=== PATIENT | male | born 1965 | race Caucasian/White ===

== ENCOUNTER 2016-10-14 09:41 | Inpatient (IN) ==
--- NOTE | 2016-10-13 21:55 | Discharge Summary ---
<Talisha Solis - Last Filed: 10/13/16 21:51> Date of Encounter: 10/13/16 - Discharge Diagnosis (1) Glenohumeral arthritis Priority: Primary Status: Acute Qualifiers: Laterality: left Qualified Code(s): M19.012 - Primary osteoarthritis, left shoulder - Discharge Medications Home Medications: OxyCODONE Immed Rel [Roxicodone 5 MG] 5 - 10 mg PO Q6HR PRN #40 tablet 10/13/16 [Rx] Ibuprofen [Motrin] 800 mg PO Q8HR PRN 10/14/16 [History] Lisinopril/Hydrochlorothiazide [Zestoretic 20-12.5 mg Tablet] 1 tab PO DAILY 06/22 [History] Allergies/Adverse Reactions: Allergies No Known Allergies Allergy (Verified 10/14/16 10:37) Primary care physician: Archana Mcguire - Patient Status Disposition: Home, Self-Care Condition: Good - Discharge Instructions Follow Up With: Carol Govea, [employer] [Primary Care Provider] - Additional Instructions: Discharge Instructions: Total Shoulder Please call [facility] ([phone]), your Primary Care Physician, or report to the Emergency Room if you have any of the following symptoms: Nausea, vomiting, fever greater that 101.5, swelling, chest pain, shortness of breath, increased pain/redness/drainage/odor for your incision site, numbness/ tingling, or any other concerning symptoms. ACTIVITY: Always keep your arm in the sling. Do not raise your arm away from your body. Do not use your arm to help with getting in or out of bed. No weight bearing permitted. Only perform those exercises given to you by your therapist. MEDICATIONS: Upon discharge resume your home medications. Take all the medications as prescribed. Take a stool softener if taking narcotic pain medications. Stool softeners are only effective if you drink enough fluids. Drink 6-8 glass of water or fluids a day, unless this is not allowed for another health problem. Despite using stool softeners, if you haven't had a bowel movement in 3 days, please switch to a gentle laxative. Gentle laxatives are sold over the counter. You should have a bowel movement within 24 hours, if not call the office. You will be discharged from the hospital with a prescription for pain medication. You are encouraged to decrease the use of narcotic pain medication as tolerated. Should you require a refill, please call the office. [facility] prescribes narcotic pain medication for only 4-6 weeks after surgery. If you require pain medication beyond this time period, you may be referred to your Primary Care Physician or to the Pain Clinic for further evaluation. Plan ahead for refills on pain medication as many narcotics either need to be picked up at the office or mailed. It is best to call 48-72 hours in advance of needing a prescription refill so you don't run out of medication. To help control the post-operative pain, you may take NSAIDs (Aleve,Advil, Motrin, ibuprofen, naprosyn) or Tylenol as prescribed on the bottle in addition to the pain medication. ANTICOAGULATION (blood thinners): Continue your Aspirin, Lovenox or Coumadin as prescribed to help prevent a blood clot in the leg or in the lungs. As long as your incision remains dry and you tolerate the NSAIDs (Aleve, Advil, Motrin, ibuprofen, naprosyn), it is OK to use the NSAIDS while you are taking your anticoagulation medication. Should your incision start to drain, stop the NSAID and contact our office. Common symptoms of blood clot in the legs include: localized pain, swelling, calf tenderness, redness or discoloration of the skin. Blood clot in the lung symptoms include: shortness of breath, rapid pulse, sweating, and chest pain that worsens with deep breathing, coughing up blood, lightheadedness, and feelings of anxiety. If you experience any of these symptoms notify your physician immediately, go to the emergency room, or if having trouble breathing , call 911. WOUND CARE: Leave the dressing on for 7 days. You may change the dressing if it becomes saturated greater than 50%. You can shower but not a tub bath or submerge your incision in water. Wash your hands with antibacterial soap, rinse and dry prior to any wound care. If you have rehan the visiting nurse or rehab facility can remove the stapes 10-14 days after surgery and place steri -strips across the wound. Leave the steri-strips in place until they fall off on their won. You may let water from the shower run on top of the steri- stirips. If you do not have a visiting nurse or rehab facility, you will need to return to the office at 10-14 days for the rehan to be removed. FOLLOW-UP: Please follow up with your surgeon in the orthopedic clinic, as scheduled - Hospital Course Hospital course: Mr. Mondragon is a 51 year old male - Time Spent with Patient Total time spent providing and/or coordinating discharge services: <Omega Garcia - Last Filed: 10/18/16 13:54> Date of Encounter: 10/18/16 Time of Encounter: 13:54 - Discharge Diagnosis (1) Obesity, morbid, BMI 40.0-49.9 Priority: Secondary Status: Chronic (2) Glenohumeral arthritis Priority: Primary Status: Acute Qualifiers: Laterality: left Qualified Code(s): M19.012 - Primary osteoarthritis, left shoulder (3) HTN (hypertension) Priority: Secondary Status: Chronic Qualifiers: Hypertension type: essential hypertension Qualified Code(s): I10 - Essential (primary) hypertension Primary care physician: Archana Mcguire - Patient Status Functional capacity at discharge: independent ambulation Overall status at discharge: patient is progressing back to baseline - Hospital Course Hospital course: Mr. Mondragon is a 51 year old male The patient had an uneventful postoperative course. They received antibiotics and physical therapy and were discharged in stable condition. There will follow -up in the office in 2 weeks. - Time Spent with Patient Total time spent providing and/or coordinating discharge services:
--- NOTE | 2016-10-14 10:32 | History & Physical Report ---
Date of Encounter: 10/14/16 Time of Encounter: 10:31 24 Hour HP Update - Instructions Instructions: If the History and Physical is less than 30 days old and was completed prior to A.M. admission and or procedure and has NOT been updated on calendar day of procedure please complete this update prior to performing procedure. - Update Patient reports changes in Medical Condition: No Changes in assessment/condition: No Changes in Medication: No Preop tests/diagnostics Reviewed: Yes Surgery Remains Indicated: Yes Consent for Planned Operative Procedure(s) Verified: Yes - Pre-Operative Checklist Preoperative Checklist Indicated: No Prophylactic Antibiotic Ordered: Yes Is VTE Prophylaxis Indicated?: Yes
[2016-10-14] MEDS ORDERED: CeFAZolin Pre 2,000 MG/100 ML 2,000 MG/100 ML BAG IVPB ONE (10:37)
[2016-10-14] MEDS ORDERED: Ringers Solution, Lactated 1,000 ML IVC SCH ×2 (10:45→14:19)
--- NOTE | 2016-10-14 10:46 | Anesthesia Evaluation PreOp ---
Date of Encounter: 10/14/16 Time of Encounter: 10:44 - Past History Planned Operation: L total shoulder Cardiac History: HTN Pulmonary History: Denies Any Significant HX MINE CAPTAIN History: Denies Any Significant HX Other Medical History: Other (BMI 41) Anesthesia History: No Prior Anesthetic Complications (never underwent anesthesia previously) Medications and Allergies OxyCODONE Immed Rel [Roxicodone 5 MG] 5 - 10 mg PO Q6HR PRN #40 tablet 10/13/16 [Rx] Allergies No Known Allergies Allergy (Verified 10/14/16 10:37) - Meds/Allergy Pre-op Review Medications Reviewed: Yes Allergies Reviewed: Yes Beta Blockers on Current Med List: No Anesthesia Results - Labs Laboratory Tests 10/03/16 10/03/16 10/03/16 14:02 14:02 14:02 WBC 9.3 Hgb 16.7 Hct 48.4 Plt Count 259 PT 11.2 INR 1.0 APTT 32.6 Sodium 141 Potassium 4.1 Chloride 106 Carbon Dioxide 24 BUN 13 Creatinine 0.98 Est GFR ( Amer) > 60 Est GFR (Non-Af Amer) > 60 BUN/Creatinine Ratio 13 Glucose 88 Calculated Osmolality 292 Calcium 10.0 - Imaging EKG: report reviewed, image reviewed (SR; possible RV conduction delay) Anesthesia Exam Last Vital Signs Temp 98.6 F 10/14/16 10:05 Pulse 75 10/14/16 10:05 Resp 18 10/14/16 10:05 BP 124/84 10/14/16 10:05 Pulse Ox 95 10/14/16 10:05 Weight: 142 kg NPO (# of Hours): >> 8 hrs - HEENT Pupil (Motor): Pupils equal, EOMI Mallampati: II Teeth: Normal Oral Opening: Greater than 3 - MINE CAPTAIN LOC: Oriented MINE CAPTAIN Motor: Normal RUE, Normal LUE, Normal RLE, Normal LLE, Normal Face MINE CAPTAIN Sensory: Normal: RUE, LUE, RLE, LLE, Face - Cardiac Rhythm: Regular Murmur: None - Pulmonary Breath Sounds: bilateral Clear Respiratory Effort: Symmetrical Anesthesia Assess/Plan ASA Score: 3 Modified Ashley Scale for Level of Consciousness: Cooperative, oriented, and tranquil Anesthetic Plan: General, Regional Monitoring Plan: Standard Monitors Recovery Plan: PACU
--- NOTE | 2016-10-14 10:51 | Orthopedic History & Physical ---
Date of Encounter: 10/14/16 Time of Encounter: 10:49 Assessment and Plan (1) Glenohumeral arthritis Current visit: Yes Status: Acute Patient is scheduled for a Left TSR with . He denies any new medical issues, or recent hospitalizations. Consent has been signed and reviewed. We discussed risks and benefits as well as recovery of this procedure the risk of this procedure. Patient is low risk for procedure today. Qualifiers: Laterality: left Qualified Code(s): M19.012 - Primary osteoarthritis, left shoulder (2) HTN (hypertension) Current visit: Yes Status: Chronic Qualifiers: Hypertension type: essential hypertension Qualified Code(s): I10 - Essential (primary) hypertension History of Present Illness Chief complaint: Left Shoulder pain HPI: Mr. Mondragon is a 51 year old male, complaining of chronic left shoulder pain. He is [id number]. 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 He has been taking Motrin 800 mg with no relief and has done home excise program for relief complains of pain and loss of function and weakness. No associated numbness or tingling. States it affects his ability to do his job every day. Denies SOB, CP, cough. Denies edema, N/T or radiation of his pain. He is able to climb stairs without difficulty, no dyspnea. Past Med Surg Social Fam HX - Past Medical History Medical history: hypertension Psychiatric history: no psych history - Past Surgical History Surgical History: no surgical history - Social History Smoking Status: Unknown if ever smoked Smokeless Tobacco Status: Yes Alcohol use: none Drug use: none Medications and Allergies OxyCODONE Immed Rel [Roxicodone 5 MG] 5 - 10 mg PO Q6HR PRN #40 tablet 10/13/16 [Rx] Allergies No Known Allergies Allergy (Verified 10/14/16 10:37) All Systems Reviewed: A 10-system review of systems was performed and is negative for pertinent findings except as documented above in the HPI. - Constitutional Constitutional: as per HPI - Cardiovascular Cardiovascular: as per HPI, no chest pain, no syncope - Respiratory Respiratory: as per HPI, no cough, no dyspnea - Musculoskeletal Musculoskeletal: as per HPI, limited range of motion, stiffness, no abnormal gait, no joint swelling, no numbness, no radiating pain into limb, no tingling Physical Exam - Constitutional Vitals: Temp Pulse Resp BP Pulse Ox 98.6 F 75 18 124/84 95 10/14/16 10:05 10/14/16 10:05 10/14/16 10:05 10/14/16 10:05 10/14/16 10:05 - Shoulder left Appearance shoulder: normal Effusion grade shoulder exam: No Tenderness w/ palpation shoulder: anterior Pain with motion: Yes ROM: abduction: abnormal ROM: forward flexion: abnormal ROM: extension: abnormal ROM: adduction: abnormal ROM: internal rotation: abnormal ROM: external rotation: abnormal Results - Labs Labs: All other labs normal.
[2016-10-14] MEDS ORDERED: *HR* HYDROmorphone (PF) 1 MG/ML SYRINGE IVP PRN ×2 (11:00→14:19)
[2016-10-14] MEDS ORDERED: *HR* Promethazine 25 MG/ML VIAL IVP PRN (11:00)
[2016-10-14] MEDS ORDERED: CeFAZolin Pre 3,000 MG/100 ML 3,000 MG/100 ML BAG IVPB ONE (11:01)
[2016-10-14] MEDS ORDERED: Dexamethasone 4 MG/ML VIAL ONE (11:03)
[2016-10-14] MEDS ORDERED: Ondansetron 4 MG/2 ML VIAL ONE (11:03)
[2016-10-14] MEDS ORDERED: *HR* FentaNYL (PF) 100 MCG/2 ML VIAL ONE ×2 (11:03→11:43)
[2016-10-14] MEDS ORDERED: *HR* Midazolam HCl 2 MG/2 ML VIAL ONE (11:04)
[2016-10-14] MEDS ORDERED: *HR* Succinylcholine 200 MG/10 ML VIAL IVP ONE (11:04)
[2016-10-14] MEDS ORDERED: *HR* Propofol 200 MG/20 ML VIAL IVP ONE (11:04)
[2016-10-14] MEDS ORDERED: Lidocaine -MPF 2% 2 ML VIAL ONE (11:04)
[2016-10-14] MEDS ORDERED: Bupivacaine/Clonidine Syringe 1 EACH SYRINGE ONE (11:24)
[2016-10-14] MEDS ORDERED: *HR* Midazolam HCl 5 MG/5 ML VIAL IVP ONE (11:43)
--- NOTE | 2016-10-14 12:01 | Anesthesia Procedures ---
Date of Encounter: 10/14/16 Time of Encounter: 11:59 Procedures: Anesthesia - Nerve Block Procedure Date: 10/14/16 Time: 12:00 Allergies/Adv Reactions: nkda Checklist: Correct Patient Identifier, Correct procedure, History checked Correct side: Left Blood Thinner: No Monitor Applied: EKG, BP, Pulse Oximetry Supplemental Oxygen via Nasal Cannula (L/min): 2 Sedation: Versed (mg): 2 Sedation: Fentanyl (mcg): 100 Indication: Post Op Analgesia Pre-op Neuro Deficits: No Block Type: Interscalene, Other (superficial cervical, intercostobrachial) Catheter placed: No Sterile Technique: Yes Ultrasound used: Yes Anatomy identified: Yes Visual spread of Local: Yes Neuro Stimulation: Yes Nerve Stimulator Range: 0.2 - 0.4 mA Blood on Needle Aspiration: No Smooth Injection of Local: Yes Pain with Injection of Local: No Prep: Chlorhexadine Needle: 22 x 50 mm Stimuplex Local: 0.25% Bupivicaine w/Clonidine 20 mcg/cc Volume (cc): 40 Number of Attempts: 1 Complications: None/effective block
[2016-10-14] MEDS ORDERED: *HR* HYDROmorphone 2 MG/ML SYRINGE ONE (12:22)
--- NOTE | 2016-10-14 13:22 | Orthopedic Operative Note ---
Date of procedure: 10/14/16 Pre-op diagnosis: Left shoulder arthritis Post-op diagnosis: same Procedure: Procedure: Left Total Shoulder Replacement biceps tenodesis Estimated blood loss: 100 cc Hardware:Arthrex glenoid: Large pegged humeral stem: 12 universe 2 humeral head 52 x 20 Exam Under anesthesia:restricted motion in all planes external rotation at side 0 degrees full elevation of 120 degrees abduction 75 degrees internal rotation to the greater trochanter. Procedural Notes: Grade 4 arthritic changes humeral head glenoid socket posterior wear, large humeral osteophyte. Operative procedure: The patient was brought to the operating room and placed on the operating room table. After general anesthesia was administered the operative shoulder was examined. Findings were noted. The patient was placed in the modified beachchair position. All pressure points were padded appropriately. And the head was stabilized in the neutral position. The operative extremity was prepped and draped in the sterile surgical fashion. The patient received IV antibiotics prior to skin incision. A standard deltopectoral approach was made to the operative shoulder. Incision was made to the skin and subcutaneous tissue,hemo stasis was obtained with Bovie cautery. Using careful blunt dissection the cephalic vein was identified and mobilized medially. The deltopectoral interval was developed and the clavipectoral fascia was incised. The subscap was released off the lesser tuberosity and tagged with #2 FiberWire suture. The humerus was dislocated patient agreed 4 arthritic changes, osteophytes were present were removed and the humeral cut was made along the anatomic neck. Anterior and posterior Bankart retractors were placed to expose the glenoid. The glenoid large guide was seated and the centering hole was made. It was reamed with the appropriate reamer. The finishing guide was seated superior and inferior drill holes were placed. Finishing punch was seated trial was seated had good fit and fixation. The large pegged glenoid component was cemented in place and held with digital pressure until cemented hardened. Component had good fit and fixation. The humerus was redislocated and prepared with the diaphyseal reamers, followed by a broaching process up to the appropriate size 12 in the patient's anatomic version. Trial components were removed and drill holes were placed in the lesser tuberosity 4. The 12 universe 2 component was impacted in place the neck angle and version were locked in place with the inferior and superior screws the trial head 52 x 20 was seated and secured in the appropriate position shoulder had good motion and stability. Trial head was removed we will have was seated and secured subscap was repaired to the humerus the #5 FiberWire sutures through the drill holes incorporating the biceps for biceps tenodesis and a subscap repair. The deltopectoral interval was closed with a running #1 PDS suture, subcutaneous tissue was irrigated and closed with 0 PDS suture, the skin was closed with Dermabond. The patient was placed in a sterile dressing, abduction brace and extubated. The patient was then transferred to the recovery room in stable condition. Anesthesia: DESIREE Surgeon: Omega Garcia Silk Winding Machine Operator: Talisha Solis Condition: stable Disposition: PACU
--- NOTE | 2016-10-14 14:18 | Anesthesia Evaluation Post Op ---
Date of Encounter: 10/14/16 Time of Encounter: 14:17 - Vital Signs Vital Signs: Last Vital Signs Temp 97.9 F 10/14/16 13:45 Pulse 74 10/14/16 14:05 Resp 16 10/14/16 14:05 BP 116/77 10/14/16 14:05 Pulse Ox 94 L 10/14/16 14:05 - Lungs Lungs: Clear Ascult./Percussion - Airway Airway: Non-obstructed - Cardiovascular Regular Rate - Mental Status Mental Status: Alert & Oriented, Answers Appropriately - Pain Pain Scale: 2 - Nausea Vomiting Nausea Vomiting: Not Present - Hydration Hydration: Ice chips - Discharge PostOp Status: Transfer Patient to floor
[2016-10-14] MEDS ORDERED: Sennosides 8.6 MG TABLET PO PRN (14:19)
[2016-10-14] MEDS ORDERED: Albuterol Neb 1.25 MG/3 ML VIAL IH ONE (14:19)
[2016-10-14] MEDS ORDERED: Acetaminophen 325 MG TABLET PO PRN (14:19)
[2016-10-14] MEDS ORDERED: Naloxone 0.4 MG/ML INJ IVP PRN (14:19)
[2016-10-14] MEDS ORDERED: Ibuprofen 800 MG TABLET PO PRN (14:19)
[2016-10-14] MEDS ORDERED: *HR* OxyCODONE Immed Rel 5 MG TABLET PO PRN ×2 (14:19)
[2016-10-14] MEDS ORDERED: MOM Conc 10 ML UD.LIQ PO PRN (14:19)
[2016-10-14] MEDS ORDERED: Ondansetron 4 MG/2 ML VIAL IVP PRN (14:19)
[2016-10-14] MEDS ORDERED: Temazepam 15 MG CAPSULE PO PRN (14:19)
[2016-10-14 14:25] LABS: Hematocrit 50.2 % (37.5-50.1); Hemoglobin 16.7 g/dL (12.9-16.9)
[2016-10-14] MEDS ORDERED: ceFAZolin 3,000 MG in D5% in Water 100 ML IVPB SCH (16:00)
[2016-10-14] MEDS ORDERED: *HR* Enoxaparin 30 MG/0.3 ML SYRINGE SQ SCH ×2 (18:00)
[2016-10-14 18:22] VITALS: BP 127/82
[2016-10-15] MEDS ORDERED: Lisinopril-HCTZ 20-12.5mg TABLET PO SCH (09:00)
== END 2016-10-14 19:30 | disposition home or self-care (01) | DRG 940 ==
LOC: SAMDAY 09:41 → 3NENU 14:21
PROVIDERS: ADMIT Orthopaedic Surgery; ATTEND Orthopaedic Surgery